=== PATIENT | male | born 1975 | race Caucasian/White ===

== ENCOUNTER 2020-10-26 21:02 | Emergency (ER) | payer BC ==
[~2020-10-26] VITALS: Ht 175.3 cm; Wt 102.1 kg
[2020-10-26 21:23] VITALS: Ht 175.3 cm; Wt 102.1 kg
[2020-10-26 22:27] LABS: BASOPHIL % 0.3 % (0.2-1.5)
[2020-10-26 22:47] LABS: PLATELET COUNT 439 x10^3mcL (152-348)
[2020-10-26 22:49] LABS: CALCIUM 9.1 mg/dL (8.5-10.1); CARBON DIOXIDE 29.5 mmol/L (21-32); CHLORIDE SERUM 105 mmol/L (98-107); CREATININE SERUM 0.9 mg/dL (0.7-1.3); GFR1 > 60 mL/min; GLUCOSE SERUM 69 mg/dL (74-106); POTASSIUM SERUM 4.2 mmol/L (3.5-5.1); SODIUM SERUM 142 mmol/L (136-145)
[2020-10-26 22:57] LABS: ALBUMIN 3.8 g/dL (3.4-5.0); ALKALINE PHOSPHATASE 100 U/L (46-116); ALT/SGPT 43 U/L (16-63); AST/SGOT 21 U/L (15-37); BILIRUBIN TOTAL 0.3 mg/dL (0.20-1.00)
[2020-10-26 23:04] LABS: TOTAL PROTEIN, SERUM 8.9 g/dL (6.4-8.2)
[2020-10-27 03:06] VITALS: BP 149/92
== END 2020-10-27 03:06 | disposition home or self-care (01) ==
LOC: ED 21:02
PROVIDERS: Emergency Medicine
DX: R59.0 Localized enlarged lymph nodes (principal); R50.9 Fever, unspecified; M79.10 Myalgia, unspecified site; J02.9 Acute pharyngitis, unspecified; Z20.822 Contact with and (suspected) exposure to COVID-19
CPT/HCPCS: 86308; J7030; Q9967